=== PATIENT | male | born 1995 | race Two or more races ===

== ENCOUNTER 2017-11-19 21:01 | Emergency (ER) | payer OTHER ==
[~2017-11-19] VITALS: Ht 190.5 cm; Wt 78.0 kg
--- NOTE | 2017-11-19 21:17 | ED.ADGEN ---
Adult General Chief Complaint Chief Complaint ".. I ve been having chest pain... here on center and left for past couple weeks.. 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 Pt. denies any trauma. Pt. normally healthy. Up to date with vaccination and follows at [place]. No hx of travel, specific ill contacts. Pt. has no hx of DVT himself or with family members. Pt. pain has been constant and non-radiating. Review of Systems Review of Systems Constitutional: Denies fever or chills [] Eyes: Denies change in visual acuity, redness, or eye pain [] HENT: Denies nasal congestion or sore throat [] Respiratory: Denies cough or shortness of breath [] Cardiovascular: No additional information not addressed in HPI [] GI: Denies abdominal pain, nausea, vomiting, bloody stools or diarrhea [] : Denies dysuria or hematuria [] Musculoskeletal: Denies back pain or joint pain [] Integument: Denies rash or skin lesions [] Neurologic: Denies headache, focal weakness or sensory changes [] Endocrine: Denies polyuria or polydipsia [] All other systems were reviewed and found to be within normal limits, except as documented in this note. Family History Family History Non-contributory Current Medications Current Medications Current Medications Medications (Trade) Dose Ordered Sig/[facility] Start Time Stop Time Status Last Admin Dose Admin Aspirin (Children'S Aspirin) 324 mg 1X ONCE 11/19/17 21:30 11/19/17 21:31 DC 11/19/17 21:36 324 MG Ketorolac Tromethamine (Toradol 30mg Vial) 30 mg 1X ONCE 11/19/17 21:30 11/19/17 21:31 DC 11/19/17 21:37 30 MG Lactated Ringer's 1,000 ml @ 1,000 mls/hr Q1H 11/19/17 21:20 11/19/17 22:19 DC 11/19/17 21:36 1,000 MLS/HR Allergies Allergies Allergies Coded Allergies Type Severity Reaction Last Updated Verified No Known Drug Allergies 11/19/17 No Physical Exam Physical Exam Constitutional: Well developed, well nourished, no acute distress, non-toxic appearance. [] HENT: Normocephalic, atraumatic, bilateral external ears normal, oropharynx moist, no oral exudates, nose normal. [] Eyes: PERRLA, EOMI, conjunctiva normal, no discharge. [] Neck: Normal range of motion, no tenderness, supple, no stridor. [] Cardiovascular:Bradycardia Heart rate regular rhythm, no murmur [] Lungs & Thorax: Bilateral breath sounds clear to auscultation [] Abdomen: Bowel sounds normal, soft, no tenderness, no masses, no pulsatile masses. [] Skin: Warm, dry, no erythema, no rash. []Tattoos Back: No tenderness, no CVA tenderness. [] Extremities: No tenderness, no cyanosis, no clubbing, ROM intact, no edema. [] No cording in legs. Neurologic: Alert and oriented X 3, normal motor function, normal sensory function, no focal deficits noted. [] Psychologic: Affect normal, judgement normal, mood normal. [] Current Patient Data Vital Signs Vital Signs Date Time Temp Pulse Resp B/P (MAP) Pulse Ox O2 Delivery O2 Flow Rate FiO2 11/19/17 23:45 98.0 50 18 134/61 (85) 98 Room Air Lab Results Laboratory Tests Test 11/19/17 21:45 11/19/17 22:45 White Blood Count 8.9 x10^3/uL (4.0-11.0) Red Blood Count 4.89 x10^6/uL (4.30-5.70) Hemoglobin 14.5 g/dL (13.0-17.5) Hematocrit 43.2 % (39.0-53.0) Mean Corpuscular Volume 88 fL (79-100) Mean Corpuscular Hemoglobin 30 pg (25-35) Mean Corpuscular Hemoglobin Concent 34 g/dL (31-37) Red Cell Distribution Width 14.9 % (11.5-14.5) H Platelet Count 209 x10^3/uL (140-400) Neutrophils (%) (Auto) 58 % (31-73) Lymphocytes (%) (Auto) 30 % (24-48) Monocytes (%) (Auto) 9 % (0-9) Eosinophils (%) (Auto) 3 % (0-3) Basophils (%) (Auto) 1 % (0-3) Neutrophils # (Auto) 5.1 x10^3uL (1.8-7.7) Lymphocytes # (Auto) 2.7 x10^3/uL (1.0-4.8) Monocytes # (Auto) 0.8 x10^3/uL (0.0-1.1) Eosinophils # (Auto) 0.3 x10^3/uL (0.0-0.7) Basophils # (Auto) 0.1 x10^3/uL (0.0-0.2) Urine Collection Type Unknown Urine Color Yellow Urine Clarity Clear Urine pH 6.0 Urine Specific [place] 1.025 Urine Protein Neg (NEG-TRACE) Urine Glucose (UA) Neg mg/dL (NEG) Urine Ketones (Stick) Neg mg/dL (NEG) Urine Blood Neg (NEG) Urine Nitrite Neg (NEG) Urine Bilirubin Neg (NEG) Urine Urobilinogen Dipstick 1 mg/dL (0.2 mg/dL) Urine Leukocyte Esterase Neg (NEG) Urine RBC 0 /HPF (0-2) Urine WBC Occ /HPF (0-4) Urine Squamous Epithelial Cells Few /LPF Urine Bacteria 0 /HPF (0-FEW) Urine Opiates Screen Neg (NEG) Urine Methadone Screen Neg (NEG) Urine Barbiturates Neg (NEG) Urine Phencyclidine Screen Neg (NEG) Urine Amphetamine/Methamphetamine Neg (NEG) Urine Benzodiazepines Screen Neg (NEG) Urine Cocaine Screen Neg (NEG) Urine Cannabinoids Screen Neg (NEG) Urine Ethyl Alcohol Neg (NEG) Prothrombin Time 10.8 SEC (9.4-11.4) Prothrombin Time INR 1.1 (0.9-1.1) PTT 25 SEC (23-33) D-Dimer (Fidelina) < 0.19 mg/L (0.00-0.50) Sodium Level 140 mmol/L (136-145) Potassium Level 3.9 mmol/L (3.5-5.1) Chloride Level 105 mmol/L (98-107) Carbon Dioxide Level 26 mmol/L (21-32) Anion Gap 9 (6-14) Blood Urea Nitrogen 16 mg/dL (8-26) Creatinine 1.2 mg/dL (0.7-1.3) Estimated GFR (Cockcroft-Gault) 75.0 Glucose Level 91 mg/dL (70-99) Calcium Level 9.4 mg/dL (8.5-10.1) Magnesium Level 2.0 mg/dL (1.8-2.4) Total Bilirubin 0.4 mg/dL (0.2-1.0) Direct Bilirubin 0.1 mg/dL (0.0-0.2) Aspartate Amino Transferase (AST) 17 U/L (15-37) Alanine Aminotransferase (ALT) 21 U/L (16-63) Alkaline Phosphatase 62 U/L (46-116) Creatine Kinase 251 U/L (39-308) Creatine Kinase MB (Mass) 1.0 ng/mL (0.0-3.6) Creatine Kinase MB Relative Index 0.4 % (0-4) Troponin I Quantitative < 0.017 ng/mL (0-0.055) PV-Zvz-[id number]-Type Natriuretic Peptide 26 pg/mL (0-124) Total Protein 6.9 g/dL (6.4-8.2) Albumin 3.8 g/dL (3.4-5.0) Lipase 71 U/L (73-393) L EKG EKG My interpretation EKG shows a sinus rhythm at 62 bpm. There is a slightly prolonged OK interval. An incomplete right bundle-branch block. No findings acute STEMI with contralateral changes.[] Radiology/Procedures Radiology/Procedures I interpretation of chest x-ray shows no acute cardiopulmonary findings.[] Course & Med Decision Making Course & Med Decision Making Pertinent Labs and Imaging studies reviewed. (See chart for details). Take ibuprofen for pain. Push fluids. Follow up with primary. Return if any concerns. [] Final Impression Final Impression 1. Chest Pain[chest wall-pleurisy Dragon Disclaimer Dragon Disclaimer This electronic medical record was generated, in whole or in part, using a voice recognition dictation system. ANNA RODRIGUEZ MD Nov 19, 2017 21:17
[2017-11-19] MEDS ORDERED: IV RINGERS SOLUTION,LACTATED 1,000 ML IV SCH (21:20)
[2017-11-19] MEDS ORDERED: ASPIRIN 81 MG TAB.CHEW PO ONE (21:30)
[2017-11-19] MEDS ORDERED: KETOROLAC 30 MG/ML VIAL. IV ONE (21:30)
[2017-11-19 22:24] LABS: BASO # 0.1 x10^3/uL (0.0-0.2); BASO % 1 % (0-3); EOS # 0.3 x10^3/uL (0.0-0.7); EOS % 3 % (0-3); HEMATOCRIT 43.2 % (39.0-53.0); HEMOGLOBIN 14.5 g/dL (13.0-17.5); LYMPH # 2.7 x10^3/uL (1.0-4.8); LYMPH % 30 % (24-48); MEAN CORPUSCULAR HEMOGLOBIN 30 pg (25-35); MEAN CORPUSCULAR HGB CONC 34 g/dL (31-37); MEAN CORPUSCULAR VOLUME 88 fL (79-100); MONO # 0.8 x10^3/uL (0.0-1.1); MONO % 9 % (0-9); NEUT # 5.1 x10^3uL (1.8-7.7); NEUT % 58 % (31-73); PLATELET COUNT 209 x10^3/uL (140-400); RED BLOOD COUNT 4.89 x10^6/uL (4.30-5.70); RED CELL DISTRIBUTION WIDTH 14.9 % (11.5-14.5); WHITE BLOOD COUNT 8.9 x10^3/uL (4.0-11.0)
[2017-11-19 22:35] LABS: BARBITURATES NEG (NEG); BENZODIAZEPINES NEG (NEG); CANNABINOIDS NEG (NEG); COCAINE NEG (NEG); METHADONE NEG (NEG); OPIATES NEG (NEG); PHENCYCLIDINE NEG (NEG)
[2017-11-19 22:36] LABS: AMPHETAMINE/METHAMPHETAMINE NEG (NEG)
[2017-11-19 22:41] LABS: BACTERIA,URINE 0 /HPF (0-FEW); BILIRUBIN,URINE NEG (NEG); CLARITY,URINE CLEAR; COLOR,URINE YELLOW; GLUCOSE,URINE NEG (NEG); NITRITE,URINE NEG (NEG); RBC,URINE 0 /HPF (0-2); SQUAMOUS EPITHELIAL CELL,UR FEW /LPF; UROBILINOGEN,URINE 1 mg/dL (0.2 mg/dL); WBC,URINE OCC /HPF (0-4)
[2017-11-19] MEDS ORDERED: IBUP400T18 PO (23:02)
[2017-11-19 23:32] LABS: ALBUMIN 3.8 g/dL (3.4-5.0); CALCIUM 9.4 mg/dL (8.5-10.1); CREATININE 1.2 mg/dL (0.7-1.3); DIRECT BILIRUBIN 0.1 mg/dL (0.0-0.2); POTASSIUM 3.9 mmol/L (3.5-5.1); TOTAL BILIRUBIN 0.4 mg/dL (0.2-1.0); TOTAL PROTEIN 6.9 g/dL (6.4-8.2)
[2017-11-19 23:45] VITALS: BP 134/61
--- NOTE | 2017-11-20 05:01 | EKG ---
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
--- NOTE | 2017-11-20 08:22 | RAD ---
AP and Lateral Views of the Chest 11/19/2017 9:20 PM Indication: Chest pain Comparison: None available Findings: There is no focal consolidation or infiltrate identified. The cardiomediastinal silhouette is within normal limits. There is no evidence of pneumothorax or pleural effusion. No acute osseous abnormalities are identified. Impression: No evidence of acute cardiopulmonary process. Electronically signed by: Luigi Mary MD (11/20/2017 8:18 AM) [facility]
== END 2017-11-19 23:55 | disposition home or self-care (01) ==
LOC: ER 21:01
DX: R09.1 Pleurisy (principal)
CPT/HCPCS: 36415; 71046; 80048; 80076; 80307; 81001; 82553; 83690; 83735; 83880; 84443; 84484; 85025; 85379; 85610; 85730; 93005; 96374; 99285; J1885; J7120; G0479

== ENCOUNTER 2020-07-02 18:21 | Emergency (ER) | payer OTHER ==
[~2020-07-02] VITALS: Ht 190.5 cm; Wt 88.0 kg
[~2020-07-02 18:21] MED LIST: IBUP400T18 PO
--- NOTE | 2020-07-02 19:27 | PHYS DOC ---
Past History Past Medical History: No Pertinent History Past Surgical History: No Surgical History Alcohol Use: Occasionally Drug Use: None Adult General Chief Complaint Chief Complaint: FLANK PAIN [facility] HPI Patient is an otherwise healthy 24-year-old male who presents with a chief complaint of cloudy urine, chills, body aches and right-sided lower back pain for about 3 days. Denies any recent illnesses, fevers, chest pain, shortness of breath, abdominal pain, nausea, vomiting, diarrhea, hematuria or blood in the stool. Denies any recent known ill contacts or Covid/flu/cold symptoms. Denies any history of sexually transmitted infections, penile pain, discharge or genital lesions. States he does have a partner with which he practices unprotected sex but been with him for a while and they are not having any symptoms. Review of Systems Review of Systems Constitutional: Denies fever or chills [] Eyes: Denies change in visual acuity, redness, or eye pain [] HENT: Denies nasal congestion or sore throat [] Respiratory: Denies cough or shortness of breath [] Cardiovascular: No additional information not addressed in HPI [] GI: Denies abdominal pain, nausea, vomiting, bloody stools or diarrhea [] : Denies dysuria or hematuria [] Musculoskeletal: Denies back pain or joint pain [] Integument: Denies rash or skin lesions [] Neurologic: Denies headache, focal weakness or sensory changes [] Endocrine: Denies polyuria or polydipsia [] All other systems were reviewed and found to be within normal limits, except as documented in this note. Allergies Allergies Allergies Coded Allergies Type Severity Reaction Last Updated Verified No Known Drug Allergies 11/19/17 No Physical Exam Physical Exam Constitutional: Well developed, well nourished, no acute distress, non-toxic appearance. [] Eyes: conjunctiva normal, no discharge. [] Cardiovascular:Heart rate regular rhythm, no murmur [] Lungs & Thorax: Bilateral breath sounds clear to auscultation [] Abdomen: soft, no tenderness, no masses, no pulsatile masses. [] Skin: Warm, dry, no erythema, no rash. [] Back: No tenderness, no CVA tenderness. [] Neurologic: Alert and oriented X 3, normal motor function, normal sensory function, no focal deficits noted. [] Psychologic: Affect normal, judgement normal, mood normal. [] Current Patient Data Vital Signs Vital Signs Date Time Temp Pulse Resp B/P (MAP) Pulse Ox O2 Delivery O2 Flow Rate FiO2 07/02/20 18:25 97.4 77 16 150/92 (111) 99 Room Air EKG EKG [] Radiology/Procedures Radiology/Procedures [] Heart Score C/O Chest Pain: No Risk Factors: Risk Factors: DM, Current or recent (<one month) smoker, HTN, HLP, family history of CAD, obesity. Risk Scores: Risk Factors: DM, Current or recent (<one month) smoker, HTN, HLP, family history of CAD, obesity. Course & Med Decision Making Course & Med Decision Making Patient is a 24-year-old male who presents with cloudy urine and chills for couple of days Vital signs not concerning. Physical exam noted above laboratory analysis not c oncerning. Urinalysis not concerning. Chlamydia and gonorrhea pending. Discussed all findings with patient who opted to wait for results of the gonorrhea and Chlamydia testing before starting any treatment. Advised to call primary care physician first thing in the morning to update on ED visit and pending labs. Gave strict return precautions to the emergency department. Patient grateful, verbalized understanding and agreed with plan of discharge. [] Dragon Disclaimer Dragon Disclaimer This electronic medical record was generated, in whole or in part, using a voice recognition dictation system. Departure Departure: Impression: Primary Impression: Cloudy urine Additional Impression: Chills Disposition: 01 DC HOME SELF CARE/HOMELESS Condition: GOOD Referrals: PCP,UNKNOWN (PCP) Additional Instructions: He was seen in the emergency department today for urinary symptoms. Your laboratory analysis was not concerning. Your urine was not concerning for infection. As discussed your gonorrhea and Chlamydia testing should result in 24 to 48 hours at which time you will be made aware of the results and treatment started if needed as you chose to wait until the results come in. Please call your primary care physician first thing in the morning to update on your ED visit and pending labs. Please come back to the ED with new or concerning symptoms. Problem Qualifiers DIANNA CINTRON MD Jul 02, 2020 19:27
[2020-07-02 20:04] LABS: BASO # 0.1 x10^3/uL (0.0-0.2); BASO % 1 % (0-3); EOS # 0.1 x10^3/uL (0.0-0.7); EOS % 1 % (0-3); HEMATOCRIT 42.6 % (39.0-53.0); HEMOGLOBIN 14.4 g/dL (13.0-17.5); LYMPH # 1.6 x10^3/uL (1.0-4.8); LYMPH % 19 % (24-48); MEAN CORPUSCULAR HEMOGLOBIN 32 pg (25-35); MEAN CORPUSCULAR HGB CONC 34 g/dL (31-37); MEAN CORPUSCULAR VOLUME 94 fL (79-100); MONO # 0.7 x10^3/uL (0.0-1.1); MONO % 8 % (0-9); NEUT # 6.1 x10^3uL (1.8-7.7); NEUT % 71 % (31-73); PLATELET COUNT 195 x10^3/uL (140-400); RED BLOOD COUNT 4.55 x10^6/uL (4.30-5.70); RED CELL DISTRIBUTION WIDTH 14.2 % (11.5-14.5); WHITE BLOOD COUNT 8.7 x10^3/uL (4.0-11.0)
[2020-07-02 20:07] LABS: POTASSIUM 3.7 mmol/L (3.5-5.1)
[2020-07-02 20:29] LABS: BACTERIA,URINE 0 /HPF (0-FEW); BILIRUBIN,URINE NEG (NEG); CLARITY,URINE CLEAR; COLOR,URINE YELLOW; GLUCOSE,URINE NEG (NEG); NITRITE,URINE NEG (NEG); RBC,URINE RARE /HPF (0-2); SQUAMOUS EPITHELIAL CELL,UR OCC /LPF; WBC,URINE OCC /HPF (0-4)
[2020-07-02 21:05] VITALS: BP 143/85
== END 2020-07-02 21:21 | disposition home or self-care (01) ==
LOC: ER 18:21
DX: R82.998 Other abnormal findings in urine (principal); R68.83 Chills (without fever); M79.10 Myalgia, unspecified site; M54.5 Low back pain
CPT/HCPCS: 36415; 80048; 81001; 85025; 99285

== ENCOUNTER 2021-01-19 15:02 | Emergency (ER) | payer OTHER ==
[~2021-01-19] VITALS: Ht 190.5 cm; Wt 83.8 kg
[2021-01-19 16:26] LABS: BASO # 0.1 x10^3/uL (0.0-0.2); BASO % 1 % (0-3); EOS # 0.1 x10^3/uL (0.0-0.7); EOS % 1 % (0-3); HEMATOCRIT 44.9 % (39.0-53.0); HEMOGLOBIN 15.1 g/dL (13.0-17.5); LYMPH # 1.6 x10^3/uL (1.0-4.8); LYMPH % 16 % (24-48); MEAN CORPUSCULAR HEMOGLOBIN 32 pg (25-35); MEAN CORPUSCULAR HGB CONC 34 g/dL (31-37); MEAN CORPUSCULAR VOLUME 94 fL (79-100); MONO # 0.6 x10^3/uL (0.0-1.1); MONO % 6 % (0-9); NEUT # 7.6 x10^3uL (1.8-7.7); NEUT % 76 % (31-73); PLATELET COUNT 197 x10^3/uL (140-400); RED BLOOD COUNT 4.77 x10^6/uL (4.30-5.70); RED CELL DISTRIBUTION WIDTH 14.8 % (11.5-14.5); WHITE BLOOD COUNT 9.9 x10^3/uL (4.0-11.0)
[2021-01-19 16:41] LABS: CALCIUM 9.7 mg/dL (8.5-10.1); CREATININE 0.8 mg/dL (0.7-1.3); GFR 116.9; POTASSIUM 3.9 mmol/L (3.5-5.1)
[2021-01-19] MEDS ORDERED: LORA-254 PO (16:50)
--- NOTE | 2021-01-19 16:51 | PHYS DOC ---
Past History Past Medical History: No Pertinent History (DENICE MOHR) Past Surgical History: No Surgical History (DENICE MOHR) Alcohol Use: Occasionally Drug Use: None (DENICE MOHR) General Adult EDM: Chief Complaint: CHEST PAIN HPI: HPI: Patient is a 25 year old male who presents with chief complaint of what he believes was a panic attack driving home from work today. 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 While he was driving home, he states he suddenly developed chest pain, palpitations, shortness of breath, nausea and his "body got tingly." He reports the symptoms lasted between 15 and 20 minutes then resolved as quickly as they started. Patient reports prior episodes similar over the past 2-3 years, but that they have gotten progressively worse each time. Patient denies SI, HI. Patient has no other complaints at this time. (DENICE MOHR) Review of Systems: Review of Systems: Constitutional: Denies fever or chills Respiratory: Denies cough Cardiovascular: See HPI GI: Denies abdominal pain, vomiting, bloody stools or diarrhea Musculoskeletal: Denies back pain or joint pain Neurologic: Denies headache, focal weakness or sensory changes Psychiatric: See HPI (DENICE MOHR) Allergies: Allergies: Allergies Coded Allergies Type Severity Reaction Last Updated Verified No Known Drug Allergies 11/19/17 No (DENICE MOHR) Physical Exam: PE: Constitutional: Well developed, well nourished, no acute distress, non-toxic appearance. Cardiovascular: Heart rate regular rhythm, no murmur. Lungs & Thorax: Bilateral breath sounds clear to auscultation. Skin: Warm, dry, no erythema, no rash. Neurologic: Alert and oriented x3, normal motor function, normal sensory function, no focal deficits noted. Psychologic: Affect calm, good judgment, mood "better." (DENICE MOHR) Current Patient Data: Labs: Laboratory Tests Test 01/19/21 16:00 White Blood Count 9.9 x10^3/uL (4.0-11.0) Red Blood Count 4.77 x10^6/uL (4.30-5.70) Hemoglobin 15.1 g/dL (13.0-17.5) Hematocrit 44.9 % (39.0-53.0) Mean Corpuscular Volume 94 fL (79-100) Mean Corpuscular Hemoglobin 32 pg (25-35) Mean Corpuscular Hemoglobin Concent 34 g/dL (31-37) Red Cell Distribution Width 14.8 % (11.5-14.5) H Platelet Count 197 x10^3/uL (140-400) Neutrophils (%) (Auto) 76 % (31-73) H Lymphocytes (%) (Auto) 16 % (24-48) L Monocytes (%) (Auto) 6 % (0-9) Eosinophils (%) (Auto) 1 % (0-3) Basophils (%) (Auto) 1 % (0-3) Neutrophils # (Auto) 7.6 x10^3uL (1.8-7.7) Lymphocytes # (Auto) 1.6 x10^3/uL (1.0-4.8) Monocytes # (Auto) 0.6 x10^3/uL (0.0-1.1) Eosinophils # (Auto) 0.1 x10^3/uL (0.0-0.7) Basophils # (Auto) 0.1 x10^3/uL (0.0-0.2) Sodium Level 141 mmol/L (136-145) Potassium Level 3.9 mmol/L (3.5-5.1) Chloride Level 104 mmol/L (98-107) Carbon Dioxide Level 29 mmol/L (21-32) Anion Gap 8 (6-14) Blood Urea Nitrogen 11 mg/dL (8-26) Creatinine 0.8 mg/dL (0.7-1.3) Estimated GFR (Cockcroft-Gault) 116.9 Glucose Level 91 mg/dL (70-99) Calcium Level 9.7 mg/dL (8.5-10.1) Creatine Kinase Pending Creatine Kinase MB (Mass) Pending Creatine Kinase MB Relative Index Pending Troponin I Quantitative < 0.017 ng/mL (0-0.055) Vital Signs: Vital Signs Date Time Temp Pulse Resp B/P (MAP) Pulse Ox O2 Delivery O2 Flow Rate FiO2 01/19/21 15:12 98.3 77 16 134/88 (103) 99 Room Air (DENICE MOHR) EKG: EKG: EKG Interpreted by Dr. Del Angel: Regular rate and rhythm 73 bpm with no ectopic beats. Regular QR interval. No STEMI. (DENICE MOHR) Heart Score: C/O Chest Pain: Yes HEART Score for Chest Pain: HEART Score for Chest Pain Response (Comments) Value History Slighlty/Non-Suspicious 0 ECG Normal 0 Age < 45 0 Risk Factors No Risk Factors 0 Troponin < Normal Limit 0 Total 0 Risk Factors: Risk Factors: n/a Risk Scores: Score 0 - 3: 2.5% MACE over next 6 weeks - Discharge Home Score 4 - 6: 20.3% MACE over next 6 weeks - Admit for Clinical Observation Score 7 - 10: 72.7% MACE over next 6 weeks - Early Invasive Strategies (DENICE MOHR) Course & Med Decision Making: Course & Med Decision Making Pertinent Labs and Imaging studies reviewed. (See chart for details) Discussed findings with patient and reassured him that his work-up did not show any evidence of acute cardiac event today. Patient states he has been interested in seeking out evaluation or care for anxiety, but was unsure about how to do so. Patient was advised that he may seek out therapist on his own or that we can provide him with a list of local resources. Additionally, patient was provided with Ativan to use when he does have these panic attacks. Patient was advised that he may break the tablets in half if he feels that is sufficient to control his symptoms. Patient understands and is agreeable to discharge plan. (DENICE MOHR) Course & Med Decision Making I was the Attending physician on the above date of service of this patient. This patient was evaluated, examined, treated, and dispositioned from the emergency department by the mid-level practitioner. Although I was working at the time , no assistance was requested. Electronically signed, Prabhjot Del Angel DO (PRABHJOT DEL ANGEL DO) Noy Disclaimer: Noy Disclaimer: This electronic medical record was generated, in whole or in part, using a voice recognition dictation system. (DENICE MOHR) Departure Departure: Impression: Primary Impression: Anxiety attack Disposition: HOME / SELF CARE / HOMELESS Condition: STABLE Referrals: PCP,UNKNOWN (PCP) Patient Instructions: Anxiety and Panic Attacks, [id number] Additional Instructions: Your work-up today was reassuring that you do not have any cardiac illness requiring emergent attention. Your symptoms today are likely due to an anxiety or panic attack. As discussed, you were provided with resources for outpatient therapy/psychological services. You may return to the emergency department if your symptoms come back or worsen. Scripts Lorazepam (ATIVAN) 1 Mg Tablet 1 TAB PO PRN PRN for ANXIETY MDD 2 Tablet(s), #10 TAB 0 Refills Prov: DENICE MOHR 01/19/21 DENICE MOHR Jan 19, 2021 16:51 PRABHJOT DEL ANGEL DO Jan 21, 2021 13:08
[2021-01-19 16:58] VITALS: BP 128/79
--- NOTE | 2021-01-19 22:39 | EKG ---
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
== END 2021-01-19 16:59 | disposition home or self-care (01) ==
LOC: ER 15:02
DX: F41.9 Anxiety disorder, unspecified (principal)
CPT/HCPCS: 36415; 80048; 82553; 84484; 85025; 93005; 99284-25